=== PATIENT | female | born 1960 | race Asian ===

== ENCOUNTER → 2023-03-14 09:19 | Outpatient (REF) | payer OTHER, SELFPAY | LOC: HWWDC 09:19 | PROVIDERS: ATTENDING PHYSICIAN Nurse Practitioner Obstetrics & Gynecology; FAMILY PHYSICIAN Family Medicine | DX: Z12.31 Encounter for screening mammogram for malignant neoplasm of breast (principal) | CPT/HCPCS: 77063; 77067 ==

== ENCOUNTER → 2024-04-16 11:43 | Outpatient (REF) | payer OTHER, SELFPAY | LOC: HWWDC 11:43 | PROVIDERS: ATTENDING PHYSICIAN Family Medicine; REFERRING PHYSICIAN Nurse Practitioner Obstetrics & Gynecology | DX: Z12.31 Encounter for screening mammogram for malignant neoplasm of breast (principal) | CPT/HCPCS: 77063; 77067 ==